=== PATIENT | female | born 1945 | race Caucasian/White ===

== ENCOUNTER 2019-03-17 06:55 | Day surgery (SDC) | payer OTHER, SELFPAY ==
[2019-03-10 07:30] VITALS: BMI 35.3
[2019-03-17] VITALS (10 sets, daily range): BP systolic 142–174; BP diastolic 66–77; PULSE 64–78; RESP 12–16; TEMP 36.2–36.5; O2SAT 91–99; BMI 35.3
--- NOTE | 2019-03-17 | PATH_ITS ---
[facility] Accession Number: [id number] . 01 Material submitted: . PART A: breast - LEFT BREAST PART B: breast - LEFT BREAST ADDITIONAL POSTERIOR MARGIN PART C: lymph node - SENTINAL LYMPH NODE #1 PART D: lymph node - SENTINAL LYMPH NODE #2 . 01 Diagnosis: A. 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 - Tumor size (invasive component): 2.6 cm, by microscopic measurement; see comment. - Nuclear pleomorphism: High. (3/3) - Mitotic rate: Low. (1/3) - Tubular differentiation: Intermediate. 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 - Focal atypical lobular hyperplasia is present. - Microcalcifications: Present in association with invasive carcinoma and benign breast tissue. - Lymphovascular space invasion: Focally suspicious. - Resection margins: - Invasive carcinoma: Negative, 0.8 cm from the closest anterior margin, and more than 1 cm from the remaining margins. - DCIS: Negative, 0.8 cm from the closest medial margin, and more than 1 cm from the remaining margins. - Prognostic markers (repeated on this specimen): - Estrogen receptor: Uniformly positive (more than 95% tumor cells staining; staining intensity: Intermediate). - Progesterone receptor: Variably positive (40% tumor cells staining; staining intensity: Intermediate to strong). - HER-2 status: Negative for protein overexpression by immunohistochemistry (0). - Regional lymph node status: Two sentinel lymph nodes, negative for carcinoma (see parts C and D). - Additional findings: - Background breast with fibrocystic change including microcysts, apocrine metaplasia, and columnar cell change/hyperplasia. - Biopsy site: Two biopsy sites identified microscopically. - Skin, nipple, and skeletal muscle are not present for evaluation in part A. - Pathologic staging: pT2 pN0(sn). . B. Left Breast, Additional Posterior Margin, Excision: Fibrofatty breast parenchyma with fibrocystic change. Negative for atypia, carcinoma in situ, and invasive malignancy. Fragments of benign skeletal muscle are present. . C. [place] Lymph Node, #1, Excisional Biopsy: One lymph node, negative for malignancy. . D. [place] Lymph Node, #2, Excisional Biopsy: One lymph node, negative for malignancy. MRV/03/24/2019 . 01 Comment: The invasive carcinoma appears to represent one contiguous mass, grossly involving 7 slices, for a total tumor size of approximately 2.6 cm. The invasive carcinoma has variable morphology, but overall an intermediate [facility] grade; areas of osteoclast giant cells associated with the invasive carcinoma and hemosiderin-laden macrophages are intimately associated with areas of focal mucinous differentiation. . 01 Electronically signed: . Herminia Patel MD, Pathologist NPI- [id number] . 01 Gross description: . (A) Received: In formalin, labeled left breast lumpectomy, black stitch: 1-short stitch superior, 2-long stitch lateral, 3-double stitch posterior; blue stitch: 1-short anterior stitch, 2-long stitch posterior, 3-double stitch medial. Note: The blue long stitch is confirmed to be inferior. Specimen: Left partial mastectomy. Weight: 110 grams. Measurement: 3.9 cm anterior to posterior, 6.7 cm medial to lateral, and 8.3 cm superior to inferior. Skin ellipse: Absent. Wire: One wire is present and penetrates at the lateral anterior aspect and ends just beneath the surface of the central posterior aspect. Margins: Oriented by surgeon with three black sutures: short superior, long lateral, double posterior; and three blue sutures: short anterior, long inferior, double medial; and is inked as follows: posterior=black; anterior=purple; superior=blue; inferior=green; medial=yellow; lateral=orange. Sliced: Superior to inferior into 19 slices. Lesions: There appears to be one mass present. Description: Anderson-white and bright red brown hemorrhagic with a coil biopsy clip located in slice 12. Size: 2.2 x 2.1 x 2.1 cm. Slices involved: #8-#14. Biopsy site: One site is identified in slice 12. Distance to margins: 1.1 cm from the anterior margin, 0.9 cm from the posterior margin, 2.5 cm from the superior margin, 2.2 cm from the inferior margin, 2.1 cm from the medial margin and 1.5 cm from the lateral margin. Other: The remaining cut surfaces consist of yellow lobulated adipose tissue with a focally fibrous area toward the lateral side. No additional discrete masses or lesions are identified. Fixation time: The specimen was placed in formalin on 03/17/2019 with no time given. Approximate total fixation time is calculated to be 69 hours 30 minutes. Sections: A1: Slice 1, clearance representative superior end of the specimen, perpendicular. A2-A3: Slice 7, tissue superior to mass, no mass grossly present, submitted anterior to posterior. A4-A5: Slice 8, mass with margins, clearance representative, bisected and submitted anterior to posterior. A6-A7: Slice 9, mass with margins, clearance representative, bisected and submitted anterior to posterior. A8-A11: Slice 10 with mass, serially sectioned and submitted lateral to medial, entirely submitted. A12-A17: Slice 11 with mass, submitted lateral to medial, entirely submitted. A18-A19: Slice 12 with mass, clearance representative, bisected and submitted anterior to posterior, slice involved with the terminal end of the localization wire. A20-A12: Slice 13 with mass, clearance representative, bisected and submitted anterior to posterior, tissue involved the terminal end of the localization wire. A22-A23: Slice 14, clearance representative with mass. A24-A29: Slice 15, tissue inferior to mass, no mass is grossly present, entirely submitted. A30, A31: Slice 16, no mass present, clearance representative. A32: Slice 17, clearance representative fibrous tissue, no mass present. A33-A34: Slice 19, inferior end of specimen, perpendicular, entirely submitted. (B) Received: In formalin, labeled left breast additional posterior margin, black stitch-1: short superior, 2: long lateral, 3: double stitch posterior; blue stitch-1: short stitch anterior, 2: long stitch inferior, 3: double stitch medial. Specimen: One left partial mastectomy. Weight: 13 grams. Measurement: 1.2 cm anterior to posterior, 3.3 cm medial to lateral, and 5.7 cm superior to inferior. Skin ellipse: Absent. Wire: Absent. Margins: Oriented by surgeon with three black sutures-short superior, long lateral, double posterior; and three blue sutures-short anterior, long inferior, double medial, and is inked as follows: posterior=black; anterior=purple; superior=blue; inferior=green; medial=yellow; lateral=orange. Sliced: Superior to inferior into 15 slices. Lesions: No nodules, masses or lesions are identified. Other: The cut surfaces consist of yellow lobulated adipose tissue. Fixation time: The specimen was placed in formalin on 03/17/2019 with no time given. Approximate total fixation time is calculated to be 69 hours 30 minutes. Sections: B1: Slice 1, superior end of specimen, perpendicular. B2: Slice 2. B3: Slice 3. B4: Slice 4. B5: Slice 5. B6: Slice 6. B7: Slice 7. B8: Slice 8. B9: Slice 9. B10: Slice 10. B11: Slice 11. B12: Slice 12. B13: Slice 13. B14: Slice 14. B15: Slice 15, inferior end of specimen, perpendicular. Specimen entirely submitted. (C) Received in formalin, labeled sentinel lymph node #1, [id number], soft, blue, no blue lymphatics, level I, is a blue-stained lymph node (2.3 x 0.6 x 0.5 cm). Serially sectioned and entirely submitted in cassette C1. (D) Received in formalin, labeled sentinel lymph node #2, level I, soft, not blue, no blue lymphatics, 205, is a morgan rubbery lymph node (0.9 x 0.5 x 0.3 cm). Trisected and entirely submitted in cassette D1. ([id number]) /MRV . 01 Microscopic: . Areas of discohesivness is evaluated with E-cadherin and Beta-Catenin immunostains on block A10, which are both retained (membranous) within the invasive carcinoma (in support of ductal differentiation). Focal areas suspicious for lymphovascular space invasion are highlighted with CD31 on block A15, but the focus of concern almost completely disappears on D2-40 (and p63) immunostains; the findings are not definitive, but raise suspicion for lymphovascular space invasion. The osteoclast giant cells are highglighted with CD68 and are negative for JEANNETTE immunostains on block A10. All of the immunostains have appropriately staining external controls. . Prognostic Receptor studies are repeated on block A10 in this specimen, given a larger representation of the invasive carcinoma which shows morphologic variation. The invasive carcinoma stains as follows: . ESTROGEN RECEPTOR (SP1): Positive (99% of tumor cells, intermediate intensity) PROGESTERONE RECEPTOR (1E2): Positive (40% of tumor cells, intermediate to strong intensity) HER-2 (4B5): Negative for protein overexpression by immunohistochemistry (0). . TECHNICAL NOTE: Internal controls are positive for both ER and IL. Cold ischemic time is <5 minutes. The scoring criteria for breast biomarkers by immunohistochemstry is based on the current ASCO/CAP guidelines ((Lakisha AC et al J Clin Oncol 2018: 2017 10;36(20):4268-6889). Deparaffinized sections of formalin fixed tissue (along with appropriate positive controls) are incubated with the above antibody(s). Using the automated Angustura stainer, tissue is incubated with the designated antibody which is then localized by a non-biotin, dual polymer detection system. The external controls are reviewed for appropriate reactivity and found to be adequate. Results on the target call population are indicated above. These tests have not been validated on decalcified tissue. * This test was developed and its performance characteristics determined by [employer]. It has not been cleared or approved by the U.S. Food and Drug Administration. The FDA has determined that such clearance or approval is not necessary. This test is used for clinical purposes. It should not be regarded as investigational or for research. . 01 Pathologist provided ICD-10: C50.912 . 01 CPT . 648617, 780758, 639541, 038342, L71495, F35286, 115944, 441511, 055144 Performed at: 01 [facility] [address] [facility], [place], [place] [id number] MD Garfield Mane MD Phone: [phone]
--- NOTE | 2019-03-17 06:59 | DI.US.S_ITS ---
ULTRASOUND GUIDED WIRE LOCALIZATION LEFT BREAST WITH POST DIGITAL MAMMOGRAPHIC IMAGIN03/17/2019 CLINICAL: Pre-op wire localization with ultrasound guidance. No prior exams were available for correlation. A wire localization using ultrasound guidance was performed for the mass located in the left breast at 1 o'clock middle depth. This was described on the previous ultrasound report. The skin was prepped in the usual manner. A wire was inserted into the targeted area under ultrasound guidance. Tip of the wire is within the center of the mass. Post placement digital mammographic imaging was obtained. IMPRESSION: WIRE LOCALIZATION Wire localization for the mass in the left breast at 1 o'clock middle depth was performed. A surgical excision is recommended. This exam was interpreted at Station ID: [id number]. Yaakov armstrong/:03/18/2019 09:12:30
--- NOTE | 2019-03-17 06:59 | DI.NM.S_ITS ---
PROCEDURE: NM SENTINEL NODE W IMAGING RADIOPHARMACEUTICAL: 1.0 mCi Millipore filtered Tc-99m sulfur colloid. INDICATIONS: left breast ca TECHNIQUE: The area around the nipple was prepped and draped in a sterile fashion. Tc-99m sulfur colloid was injected intra-dermally in the outer edge of the areola in the left breast. Images were obtained subsequently. A body contour outline was obtained. FINDINGS: There is/are one lymph node(s) in the ipsilateral axilla, which is marked on the skin and the images for referring physician. IMPRESSION: Administration of radiotracer into the left breast periareolar region for intra-operative sentinel lymph node localization. Dictated by: Aparna Byers MD, PhD on 03/17/2019 at 16:13 Approved by: Aparna Byers MD, PhD on 03/17/2019 at 16:16
--- NOTE | 2019-03-17 06:59 | DI.MG.S_ITS ---
UNILATERAL LEFT DIGITAL DIAGNOSTIC MAMMOGRAM: 03/17/2019 CLINICAL: Left breast cancer. Post wire localization under ultrasound. Comparison is made to exams dated: 03/17/2019 localization - [facility], 12/18/2018 mammogram - [facility], and 11/18/2018 mammogram - [facility]. There is a mass in the left breast at 1 o'clock middle depth. This is demonstrated by prior biopsy. This correlates with ultrasound findings and the biopsy. There are biopsy clips associated with the mass. Wire is seen in upper outer left breast adjacent to the more superficial marker clip. The tip of the wire is within the center of the mass. IMPRESSION: POST PROCEDURE MAMMOGRAM FOR MARKER PLACEMENT The mass in the left breast is consistent with the known carcinoma or a previous biopsy and is a known biopsy positive for malignancy. This exam was interpreted at Station ID: [id number]. NOTE: For mammograms, a report in lay terms will be sent to the patient. Approximately 15% of breast malignancies will not be visualized mammographically. In the management of a palpable breast mass, a negative mammogram must not discourage biopsy of a clinically suspicious lesion. Electronically Signed By: Yaakov armstrong/:03/18/2019 09:15:11 ACR BI-RADS Category Post-procedure mammogram for marker placement
[2019-03-17 07:53] LABS: Add Manual Diff / Slide Review NO; Basophils Absolute Auto 0 /uL (0-100); Basophils Percent Auto 0.9 % (0-2); Eosinophils Absolute Auto 200 /uL (0-450); Eosinophils Percent Auto 3.4 % (2-4); Hematocrit 36.8 % (36-46); Hemoglobin 12.5 g/dL (12.0-16.0); Lymphocytes Absolute Auto 1600 /uL (1100-4500); Lymphocytes Percent Auto 33.6 % (25-40); Mean Corpuscular HGB Conc 33.9 % (30-36); Mean Corpuscular Hemoglobin 34.4 PG (26-34); Mean Corpuscular Volume 101.4 fL (80-100); Monocytes Absolute Auto 600 /uL (0-900); Monocytes Percent Auto 11.6 % (3-14); Neutrophils Absolute Auto 2500 /uL (1500-7000); Neutrophils Percent Auto 50.5 % (50-75); Platelet Count 128 X10^3/uL (150-400); Red Blood Cell Count 3.63 X10^6/uL (4.0-5.2); Red Cell Distribution Width 12.7 % (11.6-14.8); White Blood Cell Count 4.9 X10^3/uL (4.5-11.0)
[2019-03-17 08:15] LABS: Alanine Aminotransferase 39 IU/L (9-52); Albumin 3.7 g/dL (3.5-5.0); Albumin Globulin Ratio 1.3 (1.0-2.8); Alkaline Phosphatase 58 U/L (38-126); Aspartate Aminotransferase 28 IU/L (14-36); BUN Creatinine Ratio 26.7 (6-22); Bilirubin Total 0.4 mg/dL (0.2-1.3); Blood Urea Nitrogen 16 mg/dL (7-17); Calcium 9.1 mg/dL (8.4-10.2); Carbon Dioxide 24 mmol/L (22-32); Chloride 108 mmol/L (98-107); Estimated Glomerular Filt Rate > 60.0 mL/min (>60); Globulin 2.8 g/dL (1.7-4.1); Glucose 109 mg/dL (80-110); HEMOLYSIS < 15 (0-50); Potassium 4.5 mmol/L (3.4-5.1); Sodium 142 mmol/L (137-145); Total Protein 6.5 g/dL (6.3-8.2)
--- NOTE | 2019-03-17 10:00 | SUR.PREOP ---
pt returned from DI at this time. pt transferred herself back into bed and denies any pain/discomfort at this time. Bed in lowest position and call light given to pt. pt appears comfortable at this time.
[2019-03-17] MEDS: LACTATED RINGERS 1,000 ML 42 ML IV (10:02)
--- NOTE | 2019-03-17 10:34 | PM.HP.1 ---
History of Present Illness Date Patient Seen: 03/17/19 Time Patient Seen: 10:35 Chief complaint: [id number] Narrative: Patient seen and examined Unchanged since recent clinic note Plan for breast lumpectomy and sentinel lymph node biopsy on the left side Patient History Medical History (Updated 03/10/19 @ 07:32 by Alona Estrella RN) Arthritis (Acute) Former smoker (Acute) HTN (hypertension) (Acute) EAN on CPAP (Acute) Surgical History (Updated 03/10/19 @ 07:33 by Alona Estrella RN) S/P breast biopsy, left (Acute) H/O tubal ligation (Resolved ~1974) Family History (Updated 03/01/19 @ 13:55 by Benita Irwin RN) Father Cancer Brother Heart disease Mother Gallstones Grandfather Stroke Cancer Social History (Updated 03/01/19 @ 13:56 by Benita Irwin RN) household members: none occupational status: previously employed Smoking Status: Former smoker alcohol intake: current substance use type: does not use Family & Social History Family History (Updated 03/01/19 @ 13:55 by Benita Irwin RN) Father Cancer Brother Heart disease Mother Gallstones Grandfather Stroke Cancer Social History: household members none Tobacco & Substance use: Tobacco type cigarettes Smoking Status Former smoker alcohol intake current alcohol intake frequency 0-2 drinks per day Substance Use Type does not use Meds Home Medications Medication Instructions Recorded Confirmed Type lisinopril 50 mg PO DAILY 02/16/19 03/17/19 History Allergies Allergy/AdvReac Type Severity Reaction Status Date / Time No Known Drug Allergies Allergy Verified 03/17/19 10:02 Exam Vital Signs (past 8 hours): - 03/17/19 10:04 Temperature 97.4 F L Pulse Rate 74 Respiratory Rate 16 Blood Pressure 147/77 H Pulse Oximetry 97 Oxygen Delivery Method Room Air Objective Labs Result Diagrams: 03/17/19 07:46 03/17/19 07:46 Labs: Laboratory Results - last 24 hr 03/17/19 03/17/19 07:46 07:46 WBC 4.9 RBC 3.63 L Hgb 12.5 Hct 36.8 MCV 101.4 H MCH 34.4 H MCHC 33.9 RDW 12.7 Plt Count 128 L Neut % (Auto) 50.5 Lymph % (Auto) 33.6 [place] % (Auto) 11.6 Eos % (Auto) 3.4 Baso % (Auto) 0.9 Neut # (Auto) 2500 Lymph # (Auto) 1600 [place] # (Auto) 600 Eos # (Auto) 200 Baso # (Auto) 0 Sodium 142 Potassium 4.5 Chloride 108 H Carbon Dioxide 24 BUN 16 Creatinine 0.60 Estimated GFR > 60.0 BUN/Creatinine Ratio 26.7 H Glucose 109 Calcium 9.1 Total Bilirubin 0.4 AST 28 ALT 39 Alkaline Phosphatase 58 Total Protein 6.5 Albumin 3.7 Globulin 2.8 Albumin/Globulin Ratio 1.3
[2019-03-17] MEDS: CEFAZOLIN 2 GM/100 ML FROZ.PIGGY IV (11:40)
--- NOTE | 2019-03-17 12:10 | SUR.OPER ---
Supine on padded OR bed, head on pillow, arms secured on padded arm boards at <90 degrees abduction, legs uncrossed, safety belt at thigh, tape over blanket over lower legs.
[2019-03-17] MEDS: BUPIVACAINE 0.25% W/ EPI 30 ML VIAL INJ (12:56)
[2019-03-17] MEDS: METHYLENE BLUE 50 MG/10 ML VIAL INJ (12:58)
--- NOTE | 2019-03-17 13:24 | DI.MG.S_ITS ---
SPECIMEN LEFT BREAST: 03/17/2019 CLINICAL: Specimen images. Correlation is made to exams dated: 03/17/2019 mammogram, 03/17/2019 localization - [facility], and 12/18/2018 mammogram - [facility]. A surgical, wire localization, and lumpectomy specimen was imaged for the mass located in the left breast at 1 o'clock anterior depth. IMPRESSION: SPECIMEN The imaged specimen includes the mass, biopsy clips, and the distal portion of the localization wire. This exam was interpreted at Station ID: [id number]. Yaakov armstrong/:03/18/2019 09:16:56
--- NOTE | 2019-03-17 14:50 | PM.OP.1 ---
Operative Date/Time/Diagnoses Date of procedure: 03/17/19 Time of procedure: 14:50 Pre-op diagnosis: Left breast cancer Post-op diagnosis: same Procedure & Clinicians Procedure: Wire localized Left breast lumpectomy -involve upper outer quadrant Left sentinel lymph node biopsy Same procedure as scheduled: Yes Indications: 73F presents after recent biopsy demonstrating invasive ductal carcinoma of the left breast. Patient underwent her normally sceduled screening mammogram on 11/18/2018 which demonstrated a spiculated mass in left breast at the 12:30 position. She underwent follow-up with diagnostic breast mammography as well as ultrasound. This demonstrated 3 distinct nodules in close proximity to each other on both imaging modalites at the 12:30 position 4-5 cm from the nipple. When measured as 1 conglomerate mass the over all extent was 2.6 cm. Individually 1 mass was 1 x 0.9 x 0.9 cm, the other at 7 x 6 x 8 mm, and the 3rd 1.5 x 1.3 x 1.2 cm. Two of these masses were biopsied by ultrasound with clip placement with nearly identical pathology demonstrated invasive ductal carcinoma [place] score of 4-5/9. ER positive, LA variably positive, HER2 negative. Ki-67 was intermediate at 10-15%. No lymphovascular invasion. There is an absence of DCIS within the specimen. She elected for breast conserving therapy Is now taken to the operating room for lumpectomy and sentinel lymph node biopsy Surgeon: Jeovanny Washington Click Yes if Unassisted: Yes Anesthesia Type: General Operative Notes Findings: On mammogram specimen both clips as well as entirety of wire within specimen Two sentinel lymph nodes removed Closure Type: primary Specimen(s): other (Lumpectomy left breast, sentinel lymph node 1., sentinel lymph node 2. ) Estimated Blood Loss (mL): 100 Blood products transfused: none Procedure in detail: Patient was brought to the operating room she was intubated without incident she was prepped and draped in usual sterile fashion a time-out was completed. 5 cc of methylene blue was infiltrated in the areolar region. Using measurements from her wire lobe films the extent of the tumor was marked out on the anterior aspect of her breast. A curvilinear incision was made on the upper outer quadrant of the breast. Approximately longterm between the areolar boundary and the entry site of the wire. This area is then infiltrated with local anesthetic -a thick breast tissue flap approximately 1.5 cm in thickness was raise then overlying the upper outer quadrant of the breast. This flap was carried laterally to the wire insertion site. The wire was identified within the operative field and brought through the skin into the field itself. We then proceeded to lift the anterior flap off the entire dissection service caring it just medial to the midportion of the breast, and inferior just shy of the nipple-areolar complex. At this point I a proceeded to develop the superior margin which was taken 2 cm superior to the needle entry site, a developed the medial margin which was taken 1 cm medial to the midportion of the breast, the inferior was taken approximately 2 cm superior to the nipple. The lateral aspect was taken essentially at the level of entry of the needle local wire. All planes were carried posteriorly. Deep within the breast the posterior margin was taken beyond the tip of the needle. The specimen was brought out of the field without difficulty. Orientation was maintained. It was marked: Black stitch short superior, long lateral, double posterior. Blue stitch short anterior, long inferior, double medial Inspecting the specimen the tip of the wire was not visible however was palpable within a few mm of the posterior margin -reviewing the mammographic imaging it appeared that the tip of the needle was still within the mammographic abnormality that likely represented tumor. As a consequence an additional posterior margin was taken. This included the area directly posterior to the deep tip of the localizing needle. This the posterior margin was taken the shape of the rectangle which maintained the dimensions of the original superior lateral medial and inferior margins. The posterior aspect of the new posterior margin was taken to the pectoralis major fascia -i.e. the fascia was taken. This posterior margin was peeled off the muscle without difficulty. The secondary margin was then marked Black stitch -short stitch superior, long lateral, double posterior, blue stitch: Short anterior, long inferior, double medial Hemostasis was then ensured in several small areas of bleeding were cauterized. A lap sponge was then placed into the cavity and we proceeded to perform the sentinel lymph node biopsy Initial counts were taken central breast was [id number], initial axilla was 442 A small linear incision was placed 2 fingerbreadths inferior to the hair-bearing area of the anterior axilla. The incision was carried through the skin subcutaneous tissue. The clavicle pectoral fascia was readily identified and opened for the width of the incision. Using a gamma probe an area of significant activity was identified directly underneath the incision. Careful dissection revealed a blue lymph node. This was isolated with cautery from the adjacent tissue grasped with an Allis clamp and removed without difficulty. This was labeled the sentinel lymph node 1 it was a level 1 lymph node, it was blue, it was soft, it did not have blue lymphatics, count was 470[address]. There was immediately substantial less activity within the axilla after its removal. There was a small spot of additional activity where an additional lymph node was identified. This was easily removed. And sent off the sentinel lymph node 2. It was soft, a level 1 lymph node, not blue, no lymphatics, count was 205 The residual count within the axilla was 233 Hemostasis was ensured Local anesthetic was infiltrated interval sites. Skin was then closed in both areas using deep dermal sutures of 3 0 Vicryl in a running subcuticular over absorbable suture. Steri-Strips were applied followed by dressings the patient was extubated brought to PACU without incident. Condition: stable Disposition: PACU
[2019-03-17] MEDS: fentaNYL 100 MCG/2 ML INJ 50 MCG IV ×2 (14:59→15:13)
[2019-03-17] MEDS: OXYCODONE/ACETAMINOPHEN 5/325 TABLET 1 TAB PO (15:19)
--- NOTE | 2019-03-17 16:33 | SUR.PHASEII ---
Report received from Santiago Yepez RN at approximately 1610 and assumed care of pt.
--- NOTE | 2019-03-25 11:01 | ONC.SCHED ---
OncoType DX ordered.
--- NOTE | 2019-04-01 10:58 | ONC.SCHED ---
OncoType DX I received a fax inquiry form [employer] stating insurance company requires prior authorization for the test and authorization must be initiated by the referring physician. I immediately called [employer] and spoke to a person in the Diagnostic Lab dept. explaining the authorization was ordered by our clinical staff on 03/17/19, approved by [facility], and then faxed to [employer] on 03/30/19. She found the information in the [employer] system, but informed me their procedure code for OncoType DX was 12294 and not 39841 as indicated on the authorization. It was unclear if this was going to be an issue with [employer] and subsequently delay the test process.
== END 2019-03-17 16:22 | disposition home or self-care (01) ==
PROVIDERS: PCP Family Medicine; Visit Provider Surgery
PROC: (CPT 19301; principal; 2019-03-17 11:15)
DX: C50.912 Malignant neoplasm of unspecified site of left female breast (principal); Z17.0 Estrogen receptor positive status [ER+]; Z87.891 Personal history of nicotine dependence; I10 Essential (primary) hypertension; G47.33 Obstructive sleep apnea (adult) (pediatric)
CPT/HCPCS: 19301; 38500; 19285; 36415; 76098; 77065; 78195; 80053; 85025; A9541; J0690; J1100; J2250; J2405; J2704; J3010; Q9968

== ENCOUNTER → 2020-03-21 13:46 | Outpatient (CLI) | payer OTHER, SELFPAY | PROVIDERS: PCP Family Medicine; Referring Provider Internal Medicine Hematology & Oncology; Visit Provider Internal Medicine Hematology & Oncology | DX: M85.851 Other specified disorders of bone density and structure, right thigh (principal); Z78.0 Asymptomatic menopausal state; C50.919 Malignant neoplasm of unspecified site of unspecified female breast; Z79.811 Long term (current) use of aromatase inhibitors; Z87.891 Personal history of nicotine dependence; Z82.62 Family history of osteoporosis | CPT/HCPCS: 77080; 77081 ==

== ENCOUNTER → 2021-01-24 10:19 | Outpatient (CLI) | payer OTHER, SELFPAY ==
--- NOTE | 2021-01-24 | DI.MG.S_ITS ---
BILATERAL DIGITAL SCREENING MAMMOGRAM 3D/2D WITH CAD: 01/24/2021 CLINICAL: Breast cancer. Routine screening. Family history of breast cancer. Comparison is made to exams dated: 12/18/2018 mammogram - [facility], 12/18/2018 mammogram - [facility], 12/14/2018 mammogram - [facility], 01/20/2020 mammogram - outside location, and 02/02/2009 mammogram - [facility]. The tissue of both breasts is heterogeneously dense. This may lower the sensitivity of mammography. Current study was also evaluated with a Computer Aided Detection (CAD) system. There are benign post operative findings in the left breast. No significant masses, calcifications, or other findings are seen in either breast. There has been no significant interval change. IMPRESSION: BENIGN There is no mammographic evidence of malignancy. A 1 year screening mammogram is recommended. This exam was interpreted at Station ID: [id number]. NOTE: For mammograms, a report in lay terms will be sent to the patient. Approximately 15% of breast malignancies will not be visualized mammographically. In the management of a palpable breast mass, a negative mammogram must not discourage biopsy of a clinically suspicious lesion. Electronically Signed By: Lucho paiz/claudia:01/25/2021 15:00:50 letter sent: Normal Exam ACR BI-RADS Category 2: Benign Finding(s) 3342F
== END ==
PROVIDERS: PCP Family Medicine; Referring Provider Family Medicine; Visit Provider Family Medicine
DX: Z12.31 Encounter for screening mammogram for malignant neoplasm of breast (principal); Z85.3 Personal history of malignant neoplasm of breast; Z80.3 Family history of malignant neoplasm of breast
CPT/HCPCS: 77063; 77067

== ENCOUNTER → 2021-05-15 13:47 | Outpatient (CLI) | payer OTHER, SELFPAY ==
[2021-05-15 14:50] LABS: Add Manual Diff / Slide Review NO; Basophils Absolute Auto 100 /uL (0-100); Eosinophils Absolute Auto 100 /uL (0-450); Eosinophils Percent Auto 2.2 % (2-4); Hematocrit 38.7 % (36-46); Lymphocytes Absolute Auto 1800 /uL (1100-4500); Lymphocytes Percent Auto 28.1 % (25-40); Mean Corpuscular HGB Conc 33.7 % (30-36); Mean Corpuscular Volume 103.8 fL (80-100); Monocytes Absolute Auto 900 /uL (0-900); Monocytes Percent Auto 13.6 % (3-14); Neutrophils Absolute Auto 3500 /uL (1500-7000); Neutrophils Percent Auto 55.1 % (50-75); Platelet Count 139 X10^3/uL (150-400); Red Blood Cell Count 3.73 X10^6/uL (4.0-5.2); Red Cell Distribution Width 12.5 % (11.6-14.8); White Blood Cell Count 6.4 X10^3/uL (4.5-11.0)
[2021-05-15 14:57] LABS: Alanine Aminotransferase 28 IU/L (<35); Albumin 4.3 g/dL (3.5-5.0); Albumin Globulin Ratio 1.5 (1.0-2.8); Alkaline Phosphatase 63 U/L (38-126); Aspartate Aminotransferase 31 IU/L (14-36); Bilirubin Total 0.3 mg/dL (0.2-1.3); Blood Urea Nitrogen 18 mg/dL (7-17); Calcium 9.3 mg/dL (8.4-10.2); Carbon Dioxide 25 mmol/L (22-32); Chloride 106 mmol/L (98-107); Estimated Glomerular Filt Rate > 60.0 mL/min (>60); Globulin 2.9 g/dL (1.7-4.1); Glucose 102 mg/dL (80-110); HEMOLYSIS < 15 (0-50); Potassium 4.2 mmol/L (3.4-5.1); Sodium 137 mmol/L (137-145); Total Protein 7.2 g/dL (6.3-8.2)
== END ==
PROVIDERS: PCP Family Medicine; Referring Provider Family Medicine; Visit Provider Family Medicine
DX: I10 Essential (primary) hypertension (principal); Z79.899 Other long term (current) drug therapy
CPT/HCPCS: 36415; 80053; 85025

== ENCOUNTER → 2022-02-05 15:00 | Outpatient (CLI) | payer OTHER, SELFPAY | PROVIDERS: PCP Family Medicine; Referring Provider Family Medicine; Visit Provider Family Medicine | DX: Z12.31 Encounter for screening mammogram for malignant neoplasm of breast (principal) ==

== ENCOUNTER → 2022-09-06 11:16 | Outpatient (CLI) | payer OTHER, SELFPAY | PROVIDERS: PCP Family Medicine; Referring Provider Family Medicine; Visit Provider Family Medicine | DX: Z13.820 Encounter for screening for osteoporosis; Z78.0 Asymptomatic menopausal state; M85.851 Other specified disorders of bone density and structure, right thigh; Z85.3 Personal history of malignant neoplasm of breast | CPT/HCPCS: 77080 ==

== ENCOUNTER → 2023-02-25 13:19 | Outpatient (CLI) | payer OTHER, SELFPAY ==
--- NOTE | 2023-02-25 | DI.MG.S_ITS ---
BILATERAL DIGITAL SCREENING MAMMOGRAM 3D/2D WITH CAD: 02/25/2023 CLINICAL: Routine screening. Breast cancer. Family history of breast cancer. Comparison is made to exams dated: 02/05/2022 mammogram, 01/24/2021 mammogram - [facility], and 01/20/2020 mammogram - outside location. There are scattered areas of fibroglandular density in both breasts (category b / 25%-50% glandular tissue). Current study was also evaluated with a Computer Aided Detection (CAD) system. There is a new 1.3 cm oval high density asymmetry in the right breast posterior depth central to the nipple seen on the mediolateral oblique view only. No other significant masses, calcifications, or other findings are seen in either breast. IMPRESSION: INCOMPLETE: NEEDS ADDITIONAL IMAGING EVALUATION The new 1.3 cm oval high density asymmetry in the right breast is indeterminate. Additional views with possible ultrasound are recommended. This exam was interpreted at Station ID: [id number]. NOTE: For mammograms, a report in lay terms will be sent to the patient. Approximately 15% of breast malignancies will not be visualized mammographically. In the management of a palpable breast mass, a negative mammogram must not discourage biopsy of a clinically suspicious lesion. Electronically Signed By: Daiana cam/claudia:02/26/2023 14:24:47 copy to: JARED ALVAREZ letter sent: Additional Imaging Needed ACR BI-RADS Category 0: Incomplete 3340F
== END ==
PROVIDERS: PCP Family Medicine; Referring Provider Family Medicine; Visit Provider Family Medicine
DX: Z12.31 Encounter for screening mammogram for malignant neoplasm of breast (principal); Z80.3 Family history of malignant neoplasm of breast
CPT/HCPCS: 77063; 77067

== ENCOUNTER → 2023-03-26 10:16 | Outpatient (CLI) | payer OTHER, SELFPAY ==
--- NOTE | 2023-03-26 | DI.MG.S_ITS ---
UNILATERAL RIGHT DIGITAL DIAGNOSTIC MAMMOGRAM 3D/2D WITH ADDITIONAL VIEWS: 03/26/2023 CLINICAL: Additional evaluation requested from prior study. Comparison is made to exams dated: 02/25/2023 mammogram, 02/05/2022 mammogram, and 01/24/2021 mammogram - [facility]. There are scattered areas of fibroglandular density in the right breast (category b / 25%-50% glandular tissue). There is a 1.4 cm round mass with an obscured margin in the right breast posterior depth inferior region seen on the mediolateral oblique view only. No other significant masses or calcifications are seen in the breast. IMPRESSION: INCOMPLETE: NEEDS ADDITIONAL IMAGING EVALUATION The 1.4 cm round mass in the right breast is indeterminate. An ultrasound is recommended. This exam was interpreted at Station ID: [id number]. NOTE: For mammograms, a report in lay terms will be sent to the patient. Approximately 15% of breast malignancies will not be visualized mammographically. In the management of a palpable breast mass, a negative mammogram must not discourage biopsy of a clinically suspicious lesion. Electronically Signed By: Magdiel Elias M.D. lc/:03/26/2023 11:11:15 copy to: JARED ALVAREZ ACR BI-RADS Category 0: Incomplete [id number]
--- NOTE | 2023-03-26 10:17 | DI.US.S_ITS ---
ULTRASOUND OF RIGHT BREAST AND AXILLA: 03/26/2023 CLINICAL: Right breast mass. Short term follow up of the right breast. Comparison is made to exams dated: 03/26/2023 mammogram, 02/25/2023 mammogram, 02/05/2022 mammogram, 01/24/2021 mammogram - [facility], and 01/20/2020 mammogram - outside location. Ultrasound of the right breast axilla was performed. There is a 1.4 cm x 1.1 cm x 1.3 cm round mass with an indistinct margin in the right breast at 7 o'clock middle depth 3 cm from the nipple. No significant abnormalities were seen sonographically in the right axilla. IMPRESSION: SUSPICIOUS OF MALIGNANCY The 1.4 cm x 1.1 cm x 1.3 cm round mass in the right breast is suspicious of malignancy. An ultrasound guided biopsy is recommended. No significant abnormalities were seen sonographically in the right axilla. This exam was interpreted at Station ID: [id number]. Electronically Signed By: Magdiel Elias M.D. lc/:03/26/2023 11:13:35 copy to: JARED ALVAREZ letter sent: Biopsy Required Ultrasound BI-RADS: 4 Suspicious for malignancy
== END ==
PROVIDERS: PCP Family Medicine; Referring Provider Internal Medicine Hematology & Oncology; Visit Provider Internal Medicine Hematology & Oncology
DX: N63.13 Unspecified lump in the right breast, lower outer quadrant (principal); N64.89 Other specified disorders of breast; R92.8 Other abnormal and inconclusive findings on diagnostic imaging of breast; D75.9 Disease of blood and blood-forming organs, unspecified; Z85.3 Personal history of malignant neoplasm of breast
CPT/HCPCS: 76642; 77065; G0279

== ENCOUNTER → 2023-04-09 15:09 | Outpatient (CLI) | payer OTHER, SELFPAY ==
--- NOTE | 2023-04-09 | PATH_ITS ---
[facility] Accession Number: [id number] No. of containers.. Tissue . 01 Material submitted: . breast - RIGHT BREAST MASS 7:00 3CMFN . 01 Diagnosis: A. Right Breast Mass, 7 O'clock, 3cm From The Nipple, Biopsy: Invasive (ductal) carcinoma, grade 3/3 ([place] combined histologic score of 9/9), with the following characteristics: 1. Tubular differentiation: None (3/3). 2. Nuclear grade: High (3/3). 3. Mitotic rate: High (3/3). 4. Tumor size: Present in 4/4 fragments, largest linear span of 8 mm. 5. Calcifications: Not identified. 6. Ductal carcinoma in situ: Not present. 7. Lymphovascular space invasion: Not identified. 8. Prognostic markers: - Estrogen receptor status: Negative (0%). - Progesterone receptor status: Negative (<1%, Weak to intermediate). - Her2 status: Negative for protein overexpression by immunohistochemistry (0). [facility] 04/15/2023 1903 Local . 01 Electronically signed: Yecenia Patel MD, Pathologist NPI- [id number] . 01 Gross description: . The specimen is received in formalin labeled with the patient's name, , and right breast 7 o'clock, 3 cm from nipple consists of five cylindrical cores of yellow-white fibrofatty soft tissue ranging from 0.4 to 1.6 cm in length and averaging 0.2 cm in diameter. Collection time: 1634, 04/09/2023. Time in formalin: Not provided. Cold ischemic time: Cannot be determined. Formalin fixation time: Approximately 29 hours. The tissue is entirely submitted in cassette A1. ([id number]) /MRV 04/10/2023 1344 Local . 01 Microscopic: . A panel of immunostains and predictive immunohistochemical markers are performed on block A1 in order to evaluate the invasive carcinoma with appropriately staining external controls. . The invasive carcinoma has the following immunoprofile: D2-40: Negative around tumor nests of interest, in support of no evidence of lymphatic space invasion. p63: Negative around above tumor nests of interest, in further support of no evidence of lymphatic space invasion; no DCIS identified. FRANKLIN-3: Positive, variably with weak intensity, in support of breast primary. Mammaglobin: Negative. GCDFP-15: Weak blush immunoreactivity. . Predictive marker immunohistochemical studies are performed on block A1 with the invasive carcinoma showing the following results: . Estrogen receptor (SP1): Negative (0% tumor cells staining). Progesterone receptor (1E2): Negative (<1% tumor cells staining, weak to intermediate intensity). Her2 (4B5): Negative for protein overexpression by immunohistochemistry (0). . Internal controls for ER and [place] are positive. . Cold ischemic time is <5 minutes. The scoring criteria for breast biomarkers by immunohistochemistry is based on the ASCO/CAP guidelines (Lakisha AC et al, J Clin Oncol: 2017Mar 10;36(20):0512-7709 and Ornelas ME et al, Arch Pathol Lab Med: 2009;134(6):907-22). Deparaffinized sections of formalin fixed tissue (along with appropriate positive controls) are incubated with the above antibody(s). Using the automated [place] stainer, tissue is incubated with the designated antibody which is then localized by a non-biotin, dual polymer detection system. The external controls are reviewed for appropriate reactivity and found to be adequate. Results on the target cell population are indicated above. These tests have not been validated on decalcified tissue. This test was developed and its performance characteristics determined by [employer]. It has not been cleared or approved by the U.S. Food and Drug Administration. The FDA has determined that such clearance or approval is not necessary. This test is used for clinical purposes. It should not be regarded as investigational or for research. . 01 Pathologist provided ICD-10: C50.811 . 01 CPT . 387924, B96657, B39025, 851797, 675250, 622810 Performed at: 01 [facility] [address], [place], [place] [id number] MD Garfield Mane MD Phone: [phone]
--- NOTE | 2023-04-09 15:20 | DI.US.S_ITS ---
Patient Name: DENNIS AVILA date: 1945 Sex: F Attending Physician: Luis Indications: Date: 04/16/2023 09:03 At the request of: JARED ALVAREZ Procedure: US bx breast perc w vac device ULTRASOUND GUIDED BIOPSY RIGHT BREAST USING VACUUM DEVICE WITH MARKING DEVICE INSERTED: 04/09/2023 CLINICAL: Right breast mass. PATIENT CONSENT: Risks (minor bleeding, infection, vasovagal reaction and repeat procedure), benefits and alternatives were explained to the patient and written informed consent was obtained. Correlation is made to exams dated: 03/26/2023 ultrasound, 04/09/2023 mammogram, 02/25/2023 mammogram, 03/26/2023 mammogram, 02/05/2022 mammogram, and 01/24/2021 mammogram - . An ultrasound guided biopsy using real-time ultrasound was performed for the 1.4 cm x 1.1 cm x 1.3 cm mass located in the right breast at 7 o'clock middle depth 3 cm from the nipple. This was described on the previous ultrasound report. The skin was prepped in the usual manner. Local anesthetic was administered to the access site. A skin omar was made in the breast. The abnormality was approached from the lateral aspect. A biopsy needle was placed adjacent to the abnormality under ultrasound guidance. Once the needle was documented to be in the correct location, five passes were made using the Mammotome biopsy system. A clip was inserted into the biopsy cavity. The specimens were sent to the laboratory for pathological analysis. IMPRESSION: ULTRASOUND GUIDED BIOPSY MALIGNANT Ultrasound guided biopsy of the 1.4 cm x 1.1 cm x 1.3 cm mass in the right breast at 7 o'clock middle depth 3 cm from the nipple was successful. Pathology indicates malignant invasive ductal carcinoma (ID). Pathology results are concordant with imaging findings. No DCIS noted. ER IA HER2 negative. Continued Report - Page 2 of 2 Patient Name: DENNIS AVILA date: 1945 Sex: F Attending Physician: Lius Indications: Date: 04/16/2023 09:03 At the request of: JARED ALVAREZ Procedure: US bx breast perc w vac device Oncologic/surgical consultation recommended. This exam was interpreted at Station ID: [id number]. Dr. Lucho millan,lc/:04/16/2023 09:03:45 copy to: JOHANNA CORNEJO
--- NOTE | 2023-04-09 16:16 | DI.MG.S_ITS ---
Patient Name: DENNIS AVILA date: 1945 Sex: F Attending Physician: Luis Indications: Date: 04/09/2023 18:10 At the request of: JARED ALVAREZ Procedure: MM diagnostic mammo [id number] UNILATERAL RIGHT DIGITAL DIAGNOSTIC MAMMOGRAM 3D/2D POST-EXCISIONAL BIOPSY: 04/09/2023 CLINICAL: Post clip. Comparison is made to exams dated: 03/26/2023 mammogram, 02/25/2023 mammogram, and 02/05/2022 mammogram - [facility]. There are scattered areas of fibroglandular density in the right breast (category b / 25%-50% glandular tissue). There is a marker clip in the appropriate position in the right breast posterior depth inferior region. There is a biopsy clip associated with the mass. IMPRESSION: POST PROCEDURE MAMMOGRAM FOR MARKER PLACEMENT There was a successful marker clip placement in the right breast posterior depth inferior region. This exam was interpreted at Station ID: [id number]. NOTE: For mammograms, a report in lay terms will be sent to the patient. Approximately 15% of breast malignancies will not be visualized mammographically. In the management of a palpable breast mass, a negative mammogram must not discourage biopsy of a clinically suspicious lesion. Electronically Signed By: Dr. Lucho Mayfield M.D. an/:04/09/2023 18:10:09 Continued Report - Page 2 of 2 Patient Name: DENNIS AVILA date: 1945 Sex: F Attending Physician: Luis Indications: Date: 04/09/2023 18:10 At the request of: JARED ALVAREZ Procedure: MM diagnostic mammo [id number] copy to: JOHANNA CORNEJO ACR BI-RADS Category Post-procedure mammogram for marker placement
== END ==
PROVIDERS: PCP Family Medicine; Referring Provider Internal Medicine Hematology & Oncology; Visit Provider Internal Medicine Hematology & Oncology
DX: C50.412 Malignant neoplasm of upper-outer quadrant of left female breast (principal); C50.511 Malignant neoplasm of lower-outer quadrant of right female breast; Z17.1 Estrogen receptor negative status [ER-]
CPT/HCPCS: 19083; 77065

== ENCOUNTER 2025-07-11 10:16 | Emergency (ER) | payer OTHER, SELFPAY ==
--- NOTE | 2025-07-11 10:30 | DI.RAD.S_ITS ---
P in ROCEDURE: XR CHEST 1V INDICATIONS: Chest Pain TECHNIQUE: One view of the chest was acquired. COMPARISON: None. FINDINGS: Surgical changes and devices: Extra thoracic right chest clips.. Lungs and pleura: Lungs are clear. No pleural effusions or pneumothorax. Mediastinum: Mediastinal contours appear normal. Heart size is normal. Bones and chest wall: No suspicious bony lesions. Overlying soft tissues appear unremarkable. IMPRESSION: No acute cardiopulmonary abnormality is seen. Dictated by: Hector Toro M.D. on 07/11/2025 at 11:10 Approved by: Hector Toro M.D. on 07/11/2025 at 11:11
--- NOTE | 2025-07-11 10:32 | EKG_ITS ---
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
[2025-07-11] MEDS: ASPIRIN 81 MG CHEW TAB 324 MG PO (10:35)
--- NOTE | 2025-07-11 10:37 | ED.GENADULT ---
HPI - General Adult General Chief complaint: Chest Pain Stated complaint: Per patient, Having a hear attack Time Seen by Provider: 07/11/25 10:36 History of Present Illness HPI narrative: 80 years old female with history of hypertension came in today complaining of mid chest pain radiated to the jaw, generalized weakness without nausea vomiting, shortness of breath, loss of consciousness. She denied any smoking cigarette or previous history of heart attack. Her EKG showed inferior STEMI. Related Data Home Medications ?Medication ?Instructions ?Recorded ?Confirmed losartan 100 mg tablet 100 mg PO DAILY 02/11/22 03/20/23 hydrochlorothiazide 12.5 mg tablet 12.5 mg PO DAILY 09/19/22 03/20/23 Allergies Allergy/AdvReac Type Severity Reaction Status Date / Time No Known Drug Allergies Allergy Verified 03/30/19 10:26 Review of Systems Review of Systems Narrative: Positive for chest pain radiated to the jaw, generalized weakness. Negative for shortness of breath, nausea vomiting, loss of consciousness, abdominal pain. Patient History Medical History (Updated 07/11/25 @ 10:47 by Luis Moreno MD) Former smoker Arthritis HTN (hypertension) EAN on CPAP Surgical History (Updated 04/14/19 @ 16:52 by Erihc Loaiza MD) S/P breast biopsy, left H/O tubal ligation (~1974) Family History (Updated 03/01/19 @ 13:55 by Benita Irwin RN) Father Cancer Brother Heart disease Mother Gallstones Grandfather Stroke Cancer Social History (Updated 03/01/19 @ 13:56 by Benita Irwin RN) household members: none occupational status: previously employed alcohol intake: current substance use type: does not use alcohol intake frequency: 0-2 drinks per day Exam Narrative Exam Narrative: GENERAL: Alert awake without acute distress. Appear weak. HEAD: Atraumatic. Normocephalic. NECK: Trachea midline. Non tender CARDIOVASCULAR: Regular rate and rhythm without murmurs, gallops, or rubs. RESPIRATORY: Clear to auscultation. Breath sounds equal bilaterally. No wheezes, rales, or rhonchi. GASTROINTESTINAL: Abdomen soft, non-tender, nondistended. EXTREMITIES: No edema or joint tenderness. NEURO: AOx3. SKIN: No rash or erythema of visible areas Initial Vital Signs Initial Vital Signs: Vital Signs Temperature 97.5 F L 07/11/25 10:39 Pulse Rate 59 L 07/11/25 10:39 Respiratory Rate 18 07/11/25 10:39 Blood Pressure 203/97 H 07/11/25 10:39 Pulse Oximetry 97 07/11/25 10:39 Oxygen Delivery Method Room Air 07/11/25 10:39 Course Orders Ordered: Discontinued Medications Aspirin (Aspirin 81 Mg Chew Tab) 324 mg PO NOW ONE Stop: 07/11/25 10:31 Last Admin: 07/11/25 10:35 Dose: 324 mg Documented By: TATYANA Heparin Sodium (Porcine) (Heparin 5,000 Unit/Ml Vial) 5,000 unit IV NOW ONE Stop: 07/11/25 10:37 Last Admin: 07/11/25 10:42 Dose: 5,000 unit Documented By: TATYANA Heparin Sodium/Dextrose (Heparin Drip) 25,000 unit in 500 mls @ 23.405 mls/hr IV CONT MANN; Protocol Last Admin: 07/11/25 10:52 Dose: 10.2 units/kg/hr, 19.894 mls/hr Documented By: TATYANA Co-signed By: MAGGY Medical Decision Making Lab Data 07/11/25 10:30 07/11/25 10:30 Labs: Lab Results 07/11/25 Range/Units 10:30 WBC 7.7 (4.5-11.0) X10^3/uL RBC 3.86 L (4.0-5.2) X10^6/uL Hgb 13.6 (12.0-16.0) g/dL Hct 39.2 (36-46) % MCV 101.6 H (80-100) fL MCH 35.3 H (26-34) PG MCHC 34.8 (30-36) % RDW 12.8 (11.6-14.8) % Plt Count 130 L (150-400) X10^3/uL Neut % (Auto) 38.9 L (50-75) % Lymph % (Auto) 45.3 H (25-40) % Worth % (Auto) 12.9 (3-14) % Eos % (Auto) 2.1 (2-4) % Baso % (Auto) 0.8 (0-2) % Neut # (Auto) 3000 (9565-1784) /uL Lymph # (Auto) 3500 (2739-0637) /uL Worth # (Auto) 1000 H (0-900) /uL Eos # (Auto) 200 (0-450) /uL Baso # (Auto) 100 (0-100) /uL PT 11.2 (9.4-12.5) SECONDS INR 1.0 (0.9-1.3) APTT 27 (25.1-36.5) SECONDS Sodium 139 (137-145) mmol/L Potassium 3.9 (3.4-5.1) mmol/L Chloride 104 (98-107) mmol/L Carbon Dioxide 22 (22-32) mmol/L BUN 19 H (7-17) mg/dL Creatinine 0.78 (0.52-1.04) mg/dL Estimated GFR > 60 (>60) mL/min BUN/Creatinine Ratio 24.4 H (6-22) Glucose 136 H (70-99) mg/dL Calcium 9.7 (8.4-10.2) mg/dL Magnesium 1.7 (1.6-2.3) mg/dL Total Bilirubin 0.4 (0.2-1.3) mg/dL AST 34 (14-36) IU/L ALT 33 (<35) IU/L Alkaline Phosphatase 69 (38-126) U/L Total Creatine Kinase 92 (30-135) U/L Troponin I < 0.012 (0.01-0.034) ng/mL NT-Pro-B Natriuret Pep 70 (<450) pg/mL Total Protein 7.9 (6.3-8.2) g/dL Albumin 4.7 (3.5-5.0) g/dL Globulin 3.2 (1.7-4.1) g/dL Albumin/Globulin Ratio 1.5 (1.0-2.8) Lipase 125 (23-300) U/L MDM Narrative Additional Information: 80 years old female with history of hypertension came in today complaining of mid chest pain radiated to the jaw, generalized weakness without nausea vomiting, shortness of breath, loss of consciousness. She denied any smoking cigarette or previous history of heart attack. Her EKG showed inferior STEMI. Her lung exam, abdominal exam were normal. Her CV exam showed bradycardia without murmur. She appear weak but awake and alert. 10:40 a.m. I discussed the case with Dr. Leyva from [facility] and agreed to accept the patient to the ED. the patient was started on aspirin, heparin drip and heparin bolus. EKG showed sinus bradycardia 59 beats per minute with ST elevation in [address] depression in 1, aVL, V1 V2. Discharge Plan Departure Patient Disposition: [facility] Clinical Impression: Acute ST elevation myocardial infarction (STEMI) of inferior wall Prescriptions: No Action losartan 100 mg Tablet 100 mg PO DAILY hydrochlorothiazide 12.5 mg Tablet 12.5 mg PO DAILY Referrals: José Manuel Stack MD [Primary Care Provider, Medical]
[2025-07-11 10:39] VITALS: BP 203/97; PULSE 59; RESP 18; TEMP 36.4; O2SAT 97; BMI 34.7
[2025-07-11 10:42] LABS: Add Manual Diff / Slide Review NO; Hematocrit 39.2 % (36-46); Hemoglobin 13.6 g/dL (12.0-16.0); Lymphocytes Absolute Auto 3500 /uL (1100-4500); Mean Corpuscular HGB Conc 34.8 % (30-36); Mean Corpuscular Hemoglobin 35.3 PG (26-34); Mean Corpuscular Volume 101.6 fL (80-100); Platelet Count 130 X10^3/uL (150-400)
[2025-07-11] MEDS: HEPARIN 5,000 UNIT/ML VIAL 5000 UNIT IV (10:42)
[2025-07-11] MEDS: HEPARIN DRIP 25,000 UNIT/500 ML IV.SOLN 19.894 UNIT IV (10:52)
[2025-07-11 10:54] LABS: INR 1.0 (0.9-1.3); Prothrombin Time 11.2 SECONDS (9.4-12.5)
[2025-07-11 10:57] LABS: PTT Partial Thromboplastin Tim 27 SECONDS (25.1-36.5)
[2025-07-11 10:59] LABS: Alanine Aminotransferase 33 IU/L (<35); Albumin 4.7 g/dL (3.5-5.0); Albumin Globulin Ratio 1.5 (1.0-2.8); Alkaline Phosphatase 69 U/L (38-126); Blood Urea Nitrogen 19 mg/dL (7-17); Calcium 9.7 mg/dL (8.4-10.2); Carbon Dioxide 22 mmol/L (22-32); Chloride 104 mmol/L (98-107); Creatine Kinase 92 U/L (30-135); Estimated Glomerular Filt Rate > 60 mL/min (>60); Globulin 3.2 g/dL (1.7-4.1); Glucose 136 mg/dL (70-99); HEMOLYSIS < 15 (0-50); Lipase 125 U/L (23-300); Magnesium 1.7 mg/dL (1.6-2.3); Potassium 3.9 mmol/L (3.4-5.1); Sodium 139 mmol/L (137-145); Total Protein 7.9 g/dL (6.3-8.2)
--- NOTE | 2025-07-11 11:06 | PC.NURSE ---
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 Alerted provider, STEMI. Consulted with [facility] ED, Dr. Christine, accepted transfer. EKG faxed to [facility] ED. 911 called for urgent transport. [facility] ED updated of ETA. [facility] ambulance departed ED at 1058.
[2025-07-11 11:10] LABS: NT-proBNP (BNP-Adult 18+) 70 pg/mL (<450); Troponin I < 0.012 ng/mL (0.01-0.034)
== END 2025-07-11 11:01 | disposition short-term general hospital (02) ==
PROVIDERS: Emergency Provider Emergency Medicine; PCP Family Medicine
DX: I21.3 ST elevation (STEMI) myocardial infarction of unspecified site (principal); R53.1 Weakness; R06.02 Shortness of breath
CPT/HCPCS: 71045; 80053; 82550; 83690; 83735; 83880; 84484; 85025; 85610; 85730; 93005; 96374; 99284; J1644